=== PATIENT | male | born 1990 | race Caucasian/White ===

== ENCOUNTER 2020-05-03 20:31 | Inpatient (IN) ==
--- OUTSIDE RECORDS SUMMARY | 2020-05-03 20:34 | External Medical Summary | Continuity of Care Document ---
:1990 Author Name Sabiha Covarrubias Address Unavailable Unavailable , Care Team Providers Name Role Phone Sabiha Covarrubias Unavailable [email or web address], [email or web address] Unavailable Unavailable Problems Active medical history not documented Allergies and Adverse Reactions Allergy history not documented Medications Medications not documented Procedures Procedures not documented Immunizations Immunizations not documented Plan of Treatment Planned Observations Planned Goals not documented Results No Known Results Results not documented
--- OUTSIDE RECORDS SUMMARY | 2020-05-03 20:34 | External Medical Summary | Continuity of Care Document ---
:1990 Author Name Sabiha Covarrubias Address Unavailable Unavailable , Care Team Providers Name Role Phone Sabiha Covarrubias Unavailable [email or web address], [email or web address] Unavailable Unavailable Problems Active medical history not documented Allergies and Adverse Reactions Allergy history not documented Medications Medications not documented Procedures Procedures not documented Immunizations Immunizations not documented Plan of Treatment Planned Observations Planned Goals not documented Results No Known Results Results not documented
[2020-05-03 21:04] LABS: Basophils # (auto) 0.02 K/uL (0-0.2); Basophils % (auto) 0.2 %; Eosinophils # (auto) 0.16 K/uL (0-0.5); Eosinophils % (auto) 1.4 %; Hematocrit (blood only) 45.1 % (42-52); Hemoglobin 16.4 g/dL (14.0-18.0); Immature Granulocytes # (auto) 0.01 K/uL (0.00-0.02); Immature Granulocytes % (auto) 0.1 %; Lymphocytes # (auto) 2.75 K/uL (1.2-3.4); Lymphocytes % (auto) 23.2 %; Mean Corpuscular Hemoglobin 32.2 pg (25-34); Mean Corpuscular Hgb Conc 36.4 g/dL (32-36); Mean Corpuscular Volume 88.6 fL (80-100); Mean Platelet Volume 10.1 fL (7.4-10.4); Monocytes # (auto) 0.54 K/uL (0.11-0.59); Monocytes % (auto) 4.6 %; Neutrophils # (auto) 8.35 K/uL (1.4-6.5); Neutrophils % (auto) 70.5 %; Platelet Count 253 K/uL (130-400); RDW Coefficient of Variation 12.5 % (11.5-14.5); RDW Standard Deviation 40.3 fL (36.4-46.3); Red Blood Count 5.09 M/uL (4.7-6.1); White Blood Count 11.83 K/uL (4.8-10.8)
[2020-05-03] MEDS ORDERED: KETOROLAC TROMETHAMINE 15 MG/ML VIAL IV STA (21:18)
[2020-05-03 21:20] LABS: Albumin Level 4.1 gm/dl (3.4-5.0); BUN Creatinine Ratio 11.9 (10-20); Calcium 10.6 mg/dl (8.5-10.1); Creatinine Clr Calc Pharmacy 97.6 ml/min; Est GFR (African American) 106.9; Est GFR (Non-African American) 92.3; Potassium 3.4 mmol/L (3.5-5.1)
[2020-05-03 21:23] LABS: Albumin Globulin Ratio 1.1 (0.9-2); Bilirubin,Total 0.8 mg/dl (0.2-1); Globulin 3.7 gm/dl (2.5-4.0); Total Protein 7.8 gm/dl (6.4-8.2)
[2020-05-03] MEDS ORDERED: OPTIRAY 320 100ml IV ONE (21:52)
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
[2020-05-03] MEDS ORDERED: metroNIDAZOLE 500 MG/100 ML BAG IV STA (23:03)
[2020-05-03] MEDS ORDERED: CIPROFLOXACIN / D5W 400 MG/200 ML BAG IV STA (23:03)
[2020-05-04] MEDS ORDERED: POTASSIUM CHLORIDE CRTAB 20 MEQ TABCR PO STA (00:37)
[2020-05-04] MEDS ORDERED: ACETAMINOPHEN 325 MG TAB PO PRN (00:37)
[2020-05-04] MEDS ORDERED: ALBUTEROL HFA 8 GM INHALER INH PRN (00:37)
[2020-05-04] MEDS ORDERED: NON-FORMULARY MEDICATION (Naloxone [Narcan] 4 mg/actuation spray,non-aerosol) INTNAS SCH (00:37)
[2020-05-04] MEDS ORDERED: PNEUMOCOCCAL ADMINISTRATION CHARGE ONE (00:47)
[2020-05-04] MEDS ORDERED: INFLUENZA VIRUS QUAD VACCINE 0.5 ML SYR IM ONE (00:47)
--- NOTE | 2020-05-04 00:48 | History and Physical Report ---
DATE OF ADMISSION: 05/03/2020 CHIEF COMPLAINT: Abdominal pain. HISTORY OF PRESENT ILLNESS: This 30-year-old male with past medical history significant for Hodgkin's lymphoma, status post chemo, currently in remission, history of pulmonary embolism, status post 6 months of Eliquis, chronic pain, mood disorder, presents with abdominal pain that started today afternoon, it is not getting better in the lower abdomen, radiated from mid lower to the right lower quadrant, also some nausea. Denies any fever, chills. Currently, pain is improving. In the ER he had a solid bowel movement and had an episode of diarrhea. Presently no evidence of any blood in stools or black stools. Normal bladder movements. Denies any chest pain, no shortness of breath, always has some cough from his asthma. He has some headache now, no blurred vision, no earache, no runny nose, no sore throat. Otherwise, appetite is okay. Currently resting comfortably and hemodynamically stable. ALLERGIES: No known drug allergies. PAST MEDICAL HISTORY: As mentioned above. PAST SURGICAL HISTORY: Tympanostomy tubes, insertion of tunneled catheter. MEDICATIONS: Currently the patient is taking albuterol 2 puffs inhalation q. 6 hours p.r.n., buprenorphine naloxone 2 tablets sublingual daily, omeprazole 20 mg p.o. daily, Zofran 8 mg p.o. q.i.d. p.r.n. FAMILY HISTORY: Significant for father has bipolar disorder. Maternal grandmother had breast cancer, diabetes, and heart disorder. Paternal grandfather has heart disorder and glaucoma. SOCIAL HISTORY: Single, smokes half a pack a day. No alcohol use, no drug use. REVIEW OF SYMPTOMS: As per HPI. Rest of review of systems negative. PHYSICAL EXAMINATION: GENERAL: The patient is of moderate build, not in acute distress. VITAL SIGNS: Temperature 36.9, pulse 84, respiratory rate 20, blood pressure 129/79, oxygen 97% room air. HEENT: Pupils equal, round, reactive to light. Oral mucosa dry. NECK: No JVD. No neck masses. CARDIOVASCULAR: S1, S2, regular rate and rhythm, no murmur, no gallop. RESPIRATORY SYSTEM: Normal AP diameter. No accessory muscle use. No wheezing, no crackles. ABDOMEN: Soft, bowel sounds present. Mild abdominal discomfort, diffuse. No guarding, no rigidity. No distention. CENTRAL NERVOUS SYSTEM: Cranial nerves II through XII grossly intact, nonfocal. EXTREMITIES: No edema, no erythema. LABORATORY DATA: WBC 11.8, hemoglobin 16.4, hematocrit 45.1, platelets 253. Sodium 139, potassium 3.4, chloride 105, bicarbonate 27, BUN 13, creatinine 1.08, serum glucose 88, calcium 10.6, total bilirubin 0.8, AST 18, ALT 40, alkaline phosphatase is 114. SARS-CoV-2 RNA negative. IMAGING: CT of abdomen and pelvis preliminary report shows pancolonic wall thickening and abnormal enhancement, most severe in the transverse and descending colon. This is associated with adjacent inflammation. Recommend correlation for infectious or inflammatory colitis. The appendix is enlarged measuring up to 11 mm with intense hypodense material associated wall thickening. While this is favored to be related to infectious or inflammatory colitis, acute appendicitis cannot entirely be excluded. No evidence of bowel perforation. ASSESSMENT AND PLAN: This is a 30-year-old male who presents with abdominal pain. 1. Abdominal pain. CAT scan showing colitis, possible appendicitis. ER talked to Surgery. Surgery want to observe for now. We will place him n.p.o., IV fluids, IV pain medications p.r.n., IV Cipro and Flagyl and also consult Surgery and GI for their recommendation. 2. History of PE, status post 6 months of Eliquis. 3. History of chronic GERD, on PPI. 4. History of chronic pain. Continue Suboxone. 5. History of Hodgkins lymphoma, status post chemo, currently under remission. Followup with hematology/oncology. 6. Deep venous thrombosis prophylaxis, sequential compression devices. DISPOSITION: Observation in medical floor. Expect discharge home and follow with family doctor. Level 1 full code. MTDD
[2020-05-04] MEDS: ONDANSETRON INJ 2 MG/ML 2 ML VIAL IV PRN ×3 (01:00→22:32)
[2020-05-04] MEDS: D5W AND NSS 1,000 ML IV SCH ×3 (01:03→16:22)
[2020-05-04] MEDS ORDERED: BUPRENORPHINE/NALOXONE 8/2 MG TAB SL STA (01:23)
[2020-05-04 01:48] LABS: Appearance Urine Clear (Clear); Color Urine Yellow
[2020-05-04 01:49] LABS: Bilirubin Urine Negative (Negative); Blood Urine Negative (Negative); Glucose Urine UA Negative (Negative); Ketones Urine 1+ (Negative); Leukocyte Esterase Urine Negative (Negative); Nitrite Urine Negative (Negative); Protein Urine Trace (Negative); Specific Gravity Urine < 1.005 (1.000-1.030); Urobilinogen Urine Negative (Negative)
[2020-05-04 01:52] LABS: Epithelial Cell Urine 0-5 /lpf (0-5)
[2020-05-04 01:53] LABS: Bacteria Urine Negative (Negative); RBC Urine 0-4 /hpf (0-4)
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
[2020-05-04] MEDS: metroNIDAZOLE 500 MG/100 ML BAG IV SCH ×2 (07:50→16:20)
--- NOTE | 2020-05-04 08:05 | CT Scan Report ---
CT SCAN OF THE ABDOMEN AND PELVIS WITH IV CONTRAST CLINICAL HISTORY: Right lower quadrant abdominal pain. COMPARISON STUDY: Abdominal CT dated 03/26/2018. TECHNIQUE: Following the IV administration of 94 cc of Optiray 320, CT scan of the abdomen and pelvi s is performed from the lung bases to the proximal femora. Images are reviewed in the axial, sagittal , and coronal planes. IV contrast was administered without complication. A dose lowering technique wa s utilized adhering to the principles of ALARA. CT DOSE: 319.66 mGy.cm FINDINGS: Lung bases: The heart is normal in size and without pericardial effusion. The lung bases are clear. T here is a small hiatal hernia. Liver: The contrast-enhanced liver is normal in size, contour, and attenuation. There is no intrahepa tic biliary ductal dilatation. The hepatic veins and portal veins are patent. Gallbladder: Unremarkable. Spleen: Normal in size and attenuation. Pancreas: Unremarkable. Adrenal glands: Unremarkable. Kidneys: The contrast enhanced kidneys are normal in size and without hydronephrosis. The kidneys enh ance symmetrically. A 1.4 cm cyst is again seen arising from the left upper pole. Abdominal vasculature: The abdominal aorta is normal in course and caliber. Bowel: There is wall thickening and edema with mucosal hyperemia seen throughout the colon. The appea rajinder is consistent with a nonspecific pancolitis. No bowel obstruction is identified. The appendix i s prominent measuring up to 9 mm in diameter. There is no surrounding inflammation and no evidence o f acute appendicitis. Peritoneum: There is no intraperitoneal free air or abdominal ascites. There is a small fat-containin g umbilical hernia. Lymphadenopathy: None. Pelvic viscera: The bladder, prostate, and seminal vesicles are normal as imaged. Skeletal structures: No lytic or blastic lesions are seen. IMPRESSION: 1. Findings are consistent with a nonspecific pancolitis. This is likely on an infectious or inflamma tory basis in this age group. 2. Prominence of the appendix may be related to colitis. There is no convincing CT evidence of acute appendicitis. ACT 112: Negative or not required by law. Electronically signed by: Choco Weaver M.D. 05/04/2020 8:03 AM
[2020-05-04] MEDS: BUPRENORPHINE/NALOXONE 8/2 MG TAB SL SCH (08:26)
[2020-05-04] MEDS ORDERED: BUPRENORPHINE/NALOXONE 8/2 MG TAB SL SCH (08:30)
[2020-05-04] MEDS ORDERED: NON-FORMULARY MEDICATION (Buprenorphine-Naloxone 8-2 mg tablet, sublingual) SL SCH (09:00)
[2020-05-04] MEDS ORDERED: INFLUENZA ADMINISTRATION CHARGE ONE (09:00)
[2020-05-04] MEDS ORDERED: PNEUMOCOCCAL POLYSACCHARIDES 25 MCG/0.5 ML VIAL/SYR IM ONE (09:00)
[2020-05-04] MEDS: CIPROFLOXACIN / D5W 400 MG/200 ML BAG IV SCH ×2 (09:52→21:51)
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
[2020-05-04] MEDS: PANTOprazole 40 MG in SYRINGE 0 ML IV SCH (11:08)
[2020-05-04] MEDS: BUPRENORPHINE/NALOXONE 2/0.5MG 1 TAB SL SCH ×2 (12:02→18:01)
--- NOTE | 2020-05-04 12:38 | Surgery Progress Note ---
Date of Service May 04, 2020 Assessment & Plan (1) Abdominal pain: Patient here with abdominal pain/diarrhea and CT scan findings concerning for non-specific pancolitis, could not rule out appendicitis Abdominal pain likely related to infectious vs inflammatory etiology Stool studies to be sent GI consulted and planning on performed Colonoscopy tomorrow for further evaluation Continue IV abx Cannot definitively rule out appendicitis, but unlikely given physical and imaging findings. We will continue to follow Admission and Anticipated Discharge Date Admission Date: May 03, 2020 Subjective Patient says he is doing okay. Says his pain is mildly improved since yesterday but is still present. States pain is in his back and is moving up towards his R mid-abdomen. Is tolerating clears currently without nausea/vomiting. Is passing loose stools. Physical Exam Physical Exam: awake/alert Respiratory: normal respiratory effort Gastrointestinal (Abdomen): Percussion/Palpation: + abdomen tender (generalized abdominal tenderness) Results & Data ([facility]) Vital Signs (Past 12 Hours) Vital Signs Temp Pulse Resp BP Pulse Ox 05/04/20 07:37 36.7 C 70 16 97/58 L 98 05/04/20 00:49 37 C 107 H 18 124/80 96 PG Care Time/CCT Total # of Minutes Spent Total Time Spent with Patient: Total time spent is greater than 50% in coordination of care (as documented) at patient's floor/unit and/or counseling patient: Coding Level of Care Code 78665 Subseq Hosp Care Lvl 1 Diagnoses Abdominal pain R10.9
[2020-05-04] MEDS ORDERED: bisacodyL 5 MG TABEC PO ONE (17:00)
[2020-05-04] MEDS ORDERED: POLYETHYLENE (MIRALAX) 17 GM PACK PO ONE ×2 (17:00→21:00)
--- NOTE | 2020-05-04 17:10 | Hospitalist Progress Note ---
Date of Service May 04, 2020 Assessment & Plan (1) Abdominal pain: Present on admission with severe abdominal pain associated with diarrhea CT abd/pelvis showed showed findings are consistent with a nonspecific pancolitis. Prominence of the appendix may be related to colitis. Surgery on board to evaluate for possible appendicitis No surgical intervention as per surgry gastro on board and plan for colonoscopy in am Started on clear liquid diet Will make NPO after midnight for the scope Continue IV Cipro, Flagyl and IVF Continue pain control Stool cx, Cdiff, Yersenia pending Hypokalemia K 3.4 on admission K replaced Will monitor BMP History of PE status post 6 months of Eliquis. History of chronic GERD On PPI. History of chronic pain. Continue Suboxone. History of Hodgkins lymphoma S/P chemo, currently under remission. Followup with hematology/oncology. Deep venous thrombosis prophylaxis On SCD Ambulate CODE STATUS FULL CODE Admission and Anticipated Discharge Date Admission Date: May 03, 2020 Subjective Pt was seen and examined for follow up of abdominal pain Lying in bed with no distress resting Pt said that he continues to have abdominal discomfort He said that the pain medication help Denies any chest pain, palpitation, dizziness and SOB Review of Systems Review of Systems: All systems reviewed & are unremarkable except as noted in Subjective Physical Exam Physical Exam: General- No acute distress Head- atraumatic Eyes- PERRL, EOMI, ENT- oropharynx clear Neck- supple, no JVD Lungs- clear to auscultation Heart- regular rhythm; no murmur Abdomen- normal bowel sounds, soft, +tender Extremities- no calf tenderness Neuro- alert, oriented x 3; PERRL, EOMI; no facial palsy; no dysarthria Skin- warm & dry Results & Data Results & Data ([facility]) Vital Signs (Past 12 Hours) Vital Signs Temp Pulse Resp BP Pulse Ox 05/04/20 15:35 36.5 C 85 16 94/55 L 99 05/04/20 07:37 36.7 C 70 16 97/58 L 98
[2020-05-04] MEDS: KETOROLAC TROMETHAMINE 15 MG/ML VIAL IV PRN (21:50)
[2020-05-05] MEDS: D5W AND NSS 1,000 ML IV SCH ×3 (00:26→18:04)
[2020-05-05] MEDS: metroNIDAZOLE 500 MG/100 ML BAG IV SCH ×3 (00:26→16:07)
[2020-05-05 07:44] LABS: BUN Creatinine Ratio 6.5 (10-20); Calcium 8.6 mg/dl (8.5-10.1); Creatinine Clr Calc Pharmacy 121.2 ml/min; Est GFR (African American) 135.2; Est GFR (Non-African American) 116.6; Magnesium 1.8 mg/dl (1.8-2.4); Potassium 3.9 mmol/L (3.5-5.1)
--- NOTE | 2020-05-05 08:02 | Surgery Progress Note ---
Date of Service May 05, 2020 Assessment & Plan (1) Colitis: -Pain is improving -Continue IV ABX -No plans for surgery at this point -Will follow up colonoscopy results today Admission and Anticipated Discharge Date Admission Date: May 03, 2020 Subjective Pt seen and examined. Afebrile. States pain is improving, but still has pain on left and right side of abdomen. No N/V. Tolerated prep well. Review of Systems Review of Systems: All systems reviewed & are unremarkable except as noted in Subjective Physical Exam Physical Exam: General- No acute distress Head- atraumatic Eyes- PERRL, EOMI, ENT- oropharynx clear Neck- supple, no JVD Lungs- clear to auscultation Heart- regular rhythm; no murmur Abdomen- normal bowel sounds, soft, +tender right and left abdomen, no guarding Extremities- no calf tenderness Neuro- alert, oriented x 3; PERRL, EOMI; no facial palsy; no dysarthria Skin- warm & dry Results & Data ([facility]) Vital Signs (Past 12 Hours) Vital Signs Temp Pulse Resp BP Pulse Ox 05/05/20 07:29 36.5 C 64 16 94/55 L 97 05/04/20 22:26 36.8 C 58 L 16 98/60 L 97 PG Care Time/CCT Total # of Minutes Spent Total Time Spent with Patient: Total time spent is greater than 50% in coordination of care (as documented) at patient's floor/unit and/or counseling patient: Coding Level of Care Code 63852 Subseq Hosp Care Lvl 1 Diagnoses Colitis K52.9
[2020-05-05] MEDS: BUPRENORPHINE/NALOXONE 8/2 MG TAB SL SCH (08:27)
[2020-05-05 09:53] LABS: Hematocrit (blood only) 35.8 % (42-52); Hemoglobin 12.5 g/dL (14.0-18.0); Mean Corpuscular Hemoglobin 31.2 pg (25-34); Mean Corpuscular Hgb Conc 34.9 g/dL (32-36); Mean Corpuscular Volume 89.3 fL (80-100); Mean Platelet Volume 9.9 fL (7.4-10.4); Platelet Count 183 K/uL (130-400); RDW Coefficient of Variation 12.3 % (11.5-14.5); RDW Standard Deviation 39.7 fL (36.4-46.3); Red Blood Count 4.01 M/uL (4.7-6.1); White Blood Count 4.85 K/uL (4.8-10.8)
--- NOTE | 2020-05-05 10:15 | Gastroenterology Progress Note ---
Date of Service May 05, 2020 Assessment & Plan (1) Colitis: (2) Abdominal pain: Pt is a 30 y/o male admitted w acute abd pain & diarrhea symptoms w CT evidence of non specific pancolitis. DDX: infectious, inflammatory colitis, overflow diarrhea 2/2 constipation (on Suboxone). - Will proceed with colonoscopy eval today by Dr. Mina. Pls keep pt NPO - Cdiff negative; F/u stool cx, Yersenia in stools - IVF hydration and will continue Cipro/Flagyl for now Admission and Anticipated Discharge Date Admission Date: May 03, 2020 Supervising Physician Co-Signing Physician Notes I saw and evaluated the patient, we are planning for colonoscopy today due to finding of laboratory changes within the colon. We have discussed the risks of the procedure to include bleeding, infection, perforation, pain and need for follow-up studies Subjective Pt completed bowel prep, been NPO since midnight. BM liquid like, clear per his report He's having less abd pain, no n/v Review of Systems Review of Systems: All systems reviewed & are unremarkable except as noted in HPI & below Physical Exam Constitutional: WD/WN, vitals as above well groomed, cooperative and comfortable Eyes: PERRL, conjunctivae normal, anicteric sclerae ENMT: external ear and nose normal, oropharynx normal Respiratory: normal respiratory effort, lungs clear to auscultation Cardiovascular: RRR, no murmur, no edema Gastrointestinal (Abdomen): Inspection/Auscultation: normal bowel sounds Percussion/Palpation: + abdomen tender (LLQ, RLQ) and abdomen soft Skin: no rashes, warm and dry no jaundice Psychiatric: A+Ox3, euthymic affect Lymphatic: no lymphedema Results & Data ([facility]) Vital Signs (Past 12 Hours) Vital Signs Temp Pulse Resp BP Pulse Ox 05/05/20 07:29 36.5 C 64 16 94/55 L 97 05/04/20 22:26 36.8 C 58 L 16 98/60 L 97
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
[2020-05-05] MEDS ORDERED: LIDOCAINE 2% 2 ML VIAL/AMP(20MG/ML) INFIL ONE (11:37)
[2020-05-05] MEDS ORDERED: PROPOFOL IV EMULSION 10 MG/ML 20 ML VIAL IV ONE (11:37)
--- NOTE | 2020-05-05 11:40 | Communication Note ---
Date of Service: May 05, 2020 The patient underwent colonoscopy today. The examination was notable for internal hemorrhoids otherwise it was unremarkable. I did perform random bio psies to look for evidence of microscopic colitis. Based on the imaging and patient history I wonder if the patient's symptoms could actually be related to use of Suboxone and perhaps constipation. Please call with any questions or concerns, GI to sign off
--- NOTE | 2020-05-05 11:44 | GI REPORT ---
Patient Name: Andrew Tate Procedure Date: 05/05/2020 11:10 AM Date of : 1990 Admit Type: Inpatient Age: 30 Gender: Male Attending MD: Lamont Mina DO Procedure: Colonoscopy Providers: Lamont Mina DO Referring MD: HASMUKH ALEXANDER Indications: Abdominal pain in the left lower quadrant, Clinically significant diarrhea of unexplained origin, Abnormal CT of the GI tract Medicines: Monitored Anesthesia Care Complications: No immediate complications. Estimated blood loss: Minimal. Estimated Blood Loss: Estimated blood loss was minimal. Procedure: Pre-Anesthesia Assessment: - Prior to the procedure, a History and Physical was performed, and patient medications, allergies and sensitivities were reviewed. The patient's tolerance of previous anesthesia was reviewed. - The risks and benefits of the procedure and the sedation options and risks were discussed with the patient. All questions were answered and informed consent was obtained. - Patient identification and proposed procedure were verified prior to the procedure by the physician, the nurse and the harness placer. The procedure was verified in the procedure room. - Pre-procedure physical examination revealed no contraindications to sedation. - ASA Grade Assessment: II - A patient with mild systemic disease. - After reviewing the risks and benefits, the patient was deemed in satisfactory condition to undergo the procedure. - The anesthesia plan was to use monitored anesthesia care (MAC). - Immediately prior to administration of medications, the patient was re-assessed for adequacy to receive sedatives. - The heart rate, respiratory rate, oxygen saturations, blood pressure, adequacy of pulmonary ventilation, and response to care were monitored throughout the procedure. - The physical status of the patient was re-assessed after the procedure. After I obtained informed consent, the scope was passed under direct vision. Throughout the procedure, the patient's blood pressure, pulse, and oxygen saturations were monitored continuously. The Colonoscope was introduced through the anus and advanced to the terminal ileum. The colonoscopy was performed without difficulty. The patient tolerated the procedure well. The quality of the bowel preparation was good. Findings: The perianal and digital rectal examinations were normal. Pertinent negatives include normal sphincter tone. The terminal ileum appeared normal. Normal mucosa was found in the entire colon. Biopsies for histology were taken with a cold forceps from the entire colon for evaluation of microscopic colitis. The pathology specimen was placed into Bottle A. Estimated blood loss was minimal. Internal hemorrhoids were found during retroflexion. The hemorrhoids were mild. The exam was otherwise without abnormality. Impression: - The examined portion of the ileum was normal. - Normal mucosa in the entire examined colon. Biopsied. - Internal hemorrhoids. - The examination was otherwise normal. Recommendation: - [facility] patient to [facility]. - Await pathology results. - Return to GI clinic PRN. Lamont Mina D.O. Lamont Mina, DO 05/05/2020 11:44:10 AM This report has been signed electronically. Note Initiated On: 05/05/2020 11:10 AM Number of Addenda: 0 I attest to the content of the Intraoperative Record and orders documented therein, exceptions below {[id number]}
[2020-05-05] MEDS ORDERED: Nursing to Pharmacy Communication SCH (12:15)
[2020-05-05] MEDS: PANTOprazole 40 MG in SYRINGE 0 ML IV SCH (12:23)
[2020-05-05] MEDS: BUPRENORPHINE/NALOXONE 2/0.5MG 1 TAB SL SCH ×2 (12:23→18:05)
[2020-05-05] MEDS: CIPROFLOXACIN / D5W 400 MG/200 ML BAG IV SCH ×2 (12:23→21:48)
--- NOTE | 2020-05-05 12:50 | Anesthesiology Progress Note ---
Date of Service May 05, 2020 Anesthesia Post Procedure Vital Signs Vital Signs: Temp Pulse Resp BP Pulse Ox 05/05/20 12:30 36.9 C 63 16 113/74 98 05/05/20 12:10 58 L 16 116/80 97 05/05/20 11:55 60 16 114/77 96 05/05/20 11:40 88 16 113/62 98 05/05/20 10:49 36.4 C L 61 18 114/83 96 05/05/20 07:29 36.5 C 64 16 94/55 L 97 05/04/20 22:26 36.8 C 58 L 16 98/60 L 97 05/04/20 15:35 36.5 C 85 16 94/55 L 99 Pain Intensity Abdomen: Pain Intensity: 0 Right Abdomen: Pain Intensity: 4 Transfer of Care Handoff Completed per policy Notes Mental Status: alert / awake / arousable Patient Amnestic to Procedure: Yes Nausea / Vomiting: adequately controlled Pain: adequately controlled Airway Patency, RR, SpO2: stable & adequate BP & HR: stable & adequate Hydration State: stable & adequate Anesthetic Complications: no major complications apparent
--- NOTE | 2020-05-05 17:16 | Hospitalist Progress Note ---
Date of Service May 05, 2020 Assessment & Plan (1) Abdominal pain: Present on admission with severe abdominal pain associated with diarrhea CT abd/pelvis showed showed findings are consistent with a nonspecific pancolitis. Prominence of the appendix may be related to colitis. Surgery on board to evaluate for possible appendicitis No surgical intervention as per surgry gastro on board s/p colonoscopy performed today by dr. Mina that showed internal hemorrhoids otherwise it was unremarkable. biopsies done to look for evidence of microscopic colitis, will follow Symptoms seem to be related to constipation from the Suboxone as per Gatro resumed clear liquid diet, will advanced to full liquid as tolerated Continue IV Cipro, Flagyl and IVF Continue pain control Stool cx and Cdiff negative stool Yersenia pending Hypokalemia K 3.4 on admission K 3.9 today stable History of PE status post 6 months of Eliquis. History of chronic GERD On PPI. History of chronic pain. Continue Suboxone. History of Hodgkins lymphoma S/P chemo, currently under remission. Followup with hematology/oncology. Deep venous thrombosis prophylaxis On SCD/ Ambulate CODE STATUS FULL CODE Disposition plan to discharge home tomorrow Admission and Anticipated Discharge Date Admission Date: May 03, 2020 Subjective Pt was seen and examined for follow up of abdominal pain Lying in bed with no distress Pt said that pain improves a little Denies any chest pain, palpitation, dizziness and fever Physical Exam Physical Exam: General- No acute distress Head- atraumatic Eyes- PERRL, EOMI, ENT- oropharynx clear Neck- supple, no JVD Lungs- clear to auscultation Heart- regular rhythm; no murmur Abdomen- normal bowel sounds, soft, +tender Extremities- no calf tenderness Neuro- alert, oriented x 3; PERRL, EOMI; no facial palsy; no dysarthria Skin- warm & dry Results & Data Results & Data ([facility]) Vital Signs (Past 12 Hours) Vital Signs Temp Pulse Resp BP Pulse Ox 05/05/20 14:44 36.4 C L 80 16 123/74 99 05/05/20 12:30 36.9 C 63 16 113/74 98 05/05/20 12:10 58 L 16 116/80 97 05/05/20 11:55 60 16 114/77 96 05/05/20 11:40 88 16 113/62 98 05/05/20 10:49 36.4 C L 61 18 114/83 96 05/05/20 07:29 36.5 C 64 16 94/55 L 97
[2020-05-05] MEDS: ONDANSETRON INJ 2 MG/ML 2 ML VIAL IV PRN (18:26)
[2020-05-05] MEDS: KETOROLAC TROMETHAMINE 15 MG/ML VIAL IV PRN (21:50)
[2020-05-06] MEDS: metroNIDAZOLE 500 MG/100 ML BAG IV SCH ×3 (00:01→16:21)
[2020-05-06] MEDS: D5W AND NSS 1,000 ML IV SCH ×2 (01:44→05:09)
--- NOTE | 2020-05-06 08:15 | Surgery Progress Note ---
Date of Service May 06, 2020 Assessment & Plan (1) Colitis: -Colonoscopy images and results reviewed -Stool studies reviewed -Unlikely he has appendicitis at this point as he continues to improve -Advance his diet as tolerated -Continue ABX for his colitis -No plans for any surgical intervention, can be discharged home later today if tolerates diet Admission and Anticipated Discharge Date Admission Date: May 05, 2020 Subjective Pt seen and examined. Pain improved. Afebrile. No acute events overnight. Review of Systems Constitutional: no fever and no chills Gastrointestinal: no nausea and no vomiting Physical Exam Constitutional: WD/WN, vitals as above Gastrointestinal (Abdomen): Inspection/Auscultation: abdomen normal to inspection; abdomen not distended Percussion/Palpation: + abdomen tender (bilateral flanks); no guarding and abdomen not rigid Results & Data ([facility]) Vital Signs (Past 12 Hours) Vital Signs Temp Pulse Resp BP Pulse Ox 05/06/20 07:14 36.6 C 68 16 105/65 96 05/05/20 23:04 36.5 C 74 16 113/68 98 PG Care Time/CCT Total # of Minutes Spent Total Time Spent with Patient: Total time spent is greater than 50% in coordination of care (as documented) at patient's floor/unit and/or counseling patient: Coding Level of Care Code 29903 Subseq Hosp Care Lvl 1 Diagnoses Colitis K52.9
[2020-05-06] MEDS: BUPRENORPHINE/NALOXONE 8/2 MG TAB SL SCH (08:24)
[2020-05-06] MEDS: CIPROFLOXACIN / D5W 400 MG/200 ML BAG IV SCH (10:08)
[2020-05-06] MEDS: BUPRENORPHINE/NALOXONE 2/0.5MG 1 TAB SL SCH ×2 (11:39→17:19)
[2020-05-06] MEDS: PANTOprazole 40 MG in SYRINGE 0 ML IV SCH (11:39)
--- NOTE | 2020-05-06 15:50 | Hospitalist Progress Note ---
Date of Service May 06, 2020 Assessment & Plan (1) Abdominal pain: Present on admission with severe abdominal pain associated with diarrhea CT abd/pelvis showed showed findings are consistent with a nonspecific pancolitis. Prominence of the appendix may be related to colitis. Surgery on board to evaluate for possible appendicitis No surgical intervention as per surgry gastro on board s/p colonoscopy performed today by dr. Mina that showed internal hemorrhoids otherwise it was unremarkable. biopsies done to look for evidence of microscopic colitis, will follow Symptoms seem to be related to constipation from the Suboxone as per Gatro resumed clear liquid diet, will advanced to full liquid as tolerated On IV Cipro, Flagyl and IVF Will transition to oral with flagyl and cipro Continue pain control Stool cx and Cdiff negative stool Yersenia pending Hypokalemia K 3.4 on admission K 3.9 today stable History of PE status post 6 months of Eliquis. History of chronic GERD On PPI. History of chronic pain. Continue Suboxone. History of Hodgkins lymphoma S/P chemo, currently under remission. Followup with hematology/oncology. Deep venous thrombosis prophylaxis On SCD/ Ambulate CODE STATUS FULL CODE Disposition plan to discharge home today Admission and Anticipated Discharge Date Admission Date: May 05, 2020 Subjective Pt was seen and examined for follow up of abdominal discomfort Lying in bed with no distress Pt said that he feels fine He said that his pain improves significantly He tolerated his diet this morning denies any chest pain, palpitation, dizziness and SOB Physical Exam Physical Exam: General- No acute distress Head- atraumatic Eyes- PERRL, EOMI, ENT- oropharynx clear Neck- supple, no JVD Lungs- clear to auscultation Heart- regular rhythm; no murmur Abdomen- normal bowel sounds, soft, +tender Extremities- no calf tenderness Neuro- alert, oriented x 3; PERRL, EOMI; no facial palsy; no dysarthria Skin- warm & dry Results & Data Results & Data ([facility]) Vital Signs (Past 12 Hours) Vital Signs Temp Pulse Resp BP Pulse Ox 05/06/20 07:14 36.6 C 68 16 105/65 96
--- NOTE | 2020-05-07 09:31 | Discharge Summary ---
Date of Service May 06, 2020 Admission HPI Per Admitting Provider CHIEF COMPLAINT: Abdominal pain. HISTORY OF PRESENT ILLNESS: This 30-year-old male with past medical history significant for Hodgkin's lymphoma, status post chemo, currently in remission, history of pulmonary embolism, status post 6 months of Eliquis, chronic pain, mood disorder, presents with abdominal pain that started today afternoon, it is not getting better in the lower abdomen, radiated from mid lower to the right lower quadrant, also some nausea. Denies any fever, chills. Currently, pain is improving. In the ER he had a solid bowel movement and had an episode of diarrhea. Presently no evidence of any blood in stools or black stools. Normal bladder movements. Denies any chest pain, no shortness of breath, always has some cough from his asthma. He has some headache now, no blurred vision, no earache, no runny nose, no sore throat. Otherwise, appetite is okay. Currently resting comfortably and hemodynamically stable. Admission Exam Per Admitting Provider GENERAL: The patient is of moderate build, not in acute distress. VITAL SIGNS: Temperature 36.9, pulse 84, respiratory rate 20, blood pressure 129/79, oxygen 97% room air. HEENT: Pupils equal, round, reactive to light. Oral mucosa dry. NECK: No JVD. No neck masses. CARDIOVASCULAR: S1, S2, regular rate and rhythm, no murmur, no gallop. RESPIRATORY SYSTEM: Normal AP diameter. No accessory muscle use. No wheezing, no crackles. ABDOMEN: Soft, bowel sounds present. Mild abdominal discomfort, diffuse. No guarding, no rigidity. No distention. CENTRAL NERVOUS SYSTEM: Cranial nerves II through XII grossly intact, nonfocal. EXTREMITIES: No edema, no erythema. Principal Diagnosis Abdominal pain: Hypokalemia History of Pulmonary embolism History of chronic GERD History of chronic pain. History of Hodgkin lymphoma Discharge Exam General- No acute distress Head- atraumatic Eyes- PERRL, EOMI, ENT- oropharynx clear Neck- supple, no JVD Lungs- clear to auscultation Heart- regular rhythm; no murmur Abdomen- normal bowel sounds, soft, +tender Extremities- no calf tenderness Neuro- alert, oriented x 3; PERRL, EOMI; no facial palsy; no dysarthria Skin- warm & dry Discharge Data Allergies Allergy/AdvReac Type Severity Reaction Status Date / Time No Known Allergies Allergy Mild Verified 05/03/20 22:51 Consultations 05/03/20 23:03 ED Decision to Admit Stat 05/04/20 00:37 Consult General Surgery Routine 05/04/20 08:00 Consult Gastroenterology Routine Procedures Performed Operation Date: 05/05/20 16:30 Actual Procedures p Colonoscopy Biopsy Cytology - Lamont Mina DO Ordered Studies 05/03/20 21:09 CT abd pelvis IV con only Urgent CT SCAN OF THE ABDOMEN AND PELVIS WITH IV CONTRAST CLINICAL HISTORY: Right lower quadrant abdominal pain. COMPARISON STUDY: Abdominal CT dated 03/26/2018. TECHNIQUE: Following the IV administration of 94 cc of Optiray 320, CT scan of the abdomen and pelvis is performed from the lung bases to the proximal femora. Images are reviewed in the axial, sagittal, and coronal planes. IV contrast was administered without complication. A dose lowering technique was utilized adhering to the principles of ALARA. CT DOSE: 319.66 mGy.cm FINDINGS: Lung bases: The heart is normal in size and without pericardial effusion. The lung bases are clear. There is a small hiatal hernia. Liver: The contrast-enhanced liver is normal in size, contour, and attenuation. There is no intrahepatic biliary ductal dilatation. The hepatic veins and portal veins are patent. Gallbladder: Unremarkable. Spleen: Normal in size and attenuation. Pancreas: Unremarkable. Adrenal glands: Unremarkable. Kidneys: The contrast enhanced kidneys are normal in size and without hydronephrosis. The kidneys enhance symmetrically. A 1.4 cm cyst is again seen arising from the left upper pole. Abdominal vasculature: The abdominal aorta is normal in course and caliber. Bowel: There is wall thickening and edema with mucosal hyperemia seen throughout the colon. The appearance is consistent with a nonspecific pancolitis. No bowel obstruction is identified. The appendix is prominent measuring up to 9 mm in diameter. There is no surrounding inflammation and no evidence of acute appendicitis. Peritoneum: There is no intraperitoneal free air or abdominal ascites. There is a small fat-containing umbilical hernia. Lymphadenopathy: None. Pelvic viscera: The bladder, prostate, and seminal vesicles are normal as imaged. Skeletal structures: No lytic or blastic lesions are seen. IMPRESSION: 1. Findings are consistent with a nonspecific pancolitis. This is likely on an infectious or inflammatory basis in this age group. 2. Prominence of the appendix may be related to colitis. There is no convincing CT evidence of acute appendicitis. ACT 112: Negative or not required by law. Electronically signed by: Choco Weaver M.D. 05/04/2020 8:03 AM Dictated: 05/04/20757Transcribed: 05/04/20757 Hospital Course (1) Abdominal pain: Present on admission with severe abdominal pain associated with diarrhea CT abd/pelvis showed showed findings are consistent with a nonspecific pancolitis. Prominence of the appendix may be related to colitis. Surgery on board to evaluate for possible appendicitis No surgical intervention as per surgry gastro on board s/p colonoscopy performed today by dr. Mina that showed internal hemorrhoids otherwise it was unremarkable. biopsies done to look for evidence of microscopic colitis, will follow Symptoms seem to be related to constipation from the Suboxone as per Gatro resumed clear liquid diet, will advanced to full liquid as tolerated On IV Cipro, Flagyl and IVF Will transition to oral with flagyl and cipro Continue pain control Stool cx and Cdiff negative stool Yersenia pending Hypokalemia K 3.4 on admission K 3.9 today stable History of PE status post 6 months of Eliquis. History of chronic GERD On PPI. History of chronic pain. Continue Suboxone. History of Hodgkins lymphoma S/P chemo, currently under remission. Followup with hematology/oncology. Deep venous thrombosis prophylaxis On SCD/ Ambulate CODE STATUS FULL CODE Disposition plan to discharge home today Total Time Total Time Spent Total Time Spent (In Minutes): 35 minutes Total Time Includes: Examination of the Patient, Discharge Planning, Medication Reconciliation, Communication With Other Providers and Other Discharge Plan Discharge Items Patient Disposition: Home - Self-Care Reason For Visit: ABD PAIN Discharge Diagnosis: Abdominal pain: Hypokalemia History of Pulmonary embolism History of chronic GERD History of chronic pain. History of Hodgkins lymphoma Activity: Resume your previous activity Non-emergency contact: Primary Care Provider Call non-emergency contact if: you have any medication questions Follow-up/Referrals: John Avila DO [Primary Care Provider] - 05/12/20 1:40 pm (Date & Time 05/12/2020 1:40 PM Provider John Avila DO Department [facility] ) Diet: Low Fiber Addtl Attending Provider Instructions: Follow up with your primary care provider dr. Avila on 05/12/2020 at1:40 PM Continue a low fiber diet Continue course of antibiotic with cipro and flagyl Pending Studies at Discharge: Yes Studies:: Yersinia culture pending Stand-Alone Forms: My [facility], Work/School Release (Inpt), Smoking Cessation Medications and DC Order Prescriptions: New metronidazole [Flagyl] 500 mg tablet 500 mg PO Q8H 5 Days Qty: 15 RF: 0 ciprofloxacin HCl [Cipro] 500 mg tablet 500 mg PO Q12H 5 Days Qty: 10 RF: 0 Continued ondansetron HCl [Zofran] 8 mg Tablet 8 mg PO QID PRN (Reason: Nausea And Vomiting) RF: 0 omeprazole 20 mg Tablet,Delayed Release (Dr/Ec) 20 mg PO DAILY RF: 0 albuterol sulfate [Ventolin HFA] 90 mcg/actuation Hfa Aerosol Inhaler 2 puff INHALATION Q6H PRN (Reason: Shortness Of Breath Or Wheezing) RF: 0 buprenorphine-naloxone 8-2 mg tablet, sublingual 2 tab SUBLINGUAL DAILY RF: 0 Narcan 4 mg/actuation spray,non-aerosol 0 spray INTRANASAL UD RF: 0 Discharge Orders: Discharge Order (Routine); Ordered 05/06/20 Ordered By: Devora Crain/Other Patient Handouts: Low-Fiber Diet, Metronidazole tablets or capsules, Ciprofloxacin tablets Admission Data Admit Date/Time: 05/05/20 17:18 Attending Provider: Devora Mckeon Admit Provider: Emmanuel Diana Primary Care Provider: John Avila Other Providers: Emmanuel Diana ; Chandan Quiñones ; Ofe Bennett ; Carlyn Mina ; Jose Huffman ; Rojas Looney ; Melida Menjivar ; Tory Ibarra ; Phu Jon Jr ; Brenda Viramontes ; Darek Veloz ; Taryn Steele ; Delmar Mast ; Nora Jama Other Interventions: Discharge Summary Assessment (RN) Last Done: 05/06/20 16:50
--- NOTE | 2020-05-12 08:16 | Coding Query ---
CODING QUERY To promote full compliance with coding requirements relating to patient care, provider participation is requested in all cases of supplier diversity director uncertainty. Please assist us with the question(s) below: Coding Question(s): Please specify below, in your clinical opinion, regarding the source(s) of the abdominal pain that were treated and/or monitored during this admission. Abdominal Pain due to: ( ) Possible Colitis ( ) Possible Infectious ( ) Possible Other Colitis: Please Specify ( x) Unspecified Colitis ( ) Constipation due to Suboxone ( ) Possible Acute Appendicitis ( ) Other: Please Specify ( ) Unknown Possible Source Physician's Response(s): Thank you Krysta Rodriguez Principal Diagnosis: "that condition established after study, to be chiefly responsible for occasioning the admission of the patient to the hospital for care." Co-Existing Principal Diagnosis: "when two or more diagnoses equally meet the criteria for principal diagnosis as determined by the circumstances of admission, diagnostic work up, and/or therapy provided, and the Alphabetic Index, Tabular List, or another coding guideline does not provide sequencing direction, any one of the diagnoses may be sequenced first." "When the physician has documented what appears to be a current diagnosis in the body of the record, but has not included the diagnosis in the final diagnostic statement, the physician should be asked whether the diagnosis should be added." (Source Coding [facility] 2 QTR90. p3-4) MICKEY
== END 2020-05-06 17:41 | disposition home or self-care (01) ==
LOC: ED 20:31 → 3E 20:31 → SUATTDRO 23:34 → 3E 05-04 00:12